=== PATIENT | female | born 2005 | race Caucasian/White ===

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

== ENCOUNTER 2023-08-08 10:37 | Outpatient (CLI) | payer OTHER, SELFPAY ==
[2023-08-08 10:52] LABS: Basophils Absolute Auto 0.03 K/mm3 (0.00-0.10); Basophils Percent Auto 0.3 % (0.0-1.0); Eosinophils Absolute Auto 0.11 K/mm3 (0.02-0.50); Hemoglobin 13.3 g/dL (12.0-15.0); Immature Granulocyte Absolute 0.04 K/mm3 (0.00-0.00); Immature Granulocyte Percent A 0.4 % (0.0-0.0); Lymphocytes Absolute Auto 1.81 K/mm3 (1.10-4.50); Mean Corpuscular HGB Conc 33.3 g/dL (32.0-36.0); Mean Corpuscular Hemoglobin 30.1 pg (27.0-31.0); Mean Corpuscular Volume 90.5 fL (78.0-102.0); Mean Platelet Volume 10.4 fl (9.2-11.8); Monocytes Absolute Auto 0.82 K/mm3 (0.10-0.90); Monocytes Percent Auto 7.3 % (2.0-11.0); Neutrophils Absolute Auto 8.5 K/mm3 (1.7-7.2); Platelet Count Result 265 K/mm3 (150-420); Red Blood Count 4.42 M/mm3 (4.20-5.40); Red Cell Distribution Width 13.2 % (11.6-14.4); White Blood Count 11.3 K/mm3 (4.8-10.8)
[2023-08-08 11:42] LABS: Alanine Aminotransferase 12 U/L (14-59); Albumin Level 3.9 g/dL (3.4-5.0); Alkaline Phosphatase 110 U/L (50-130); Anion Gap 8 mmol/L (8-16); Aspartate Amino Transferase 14 U/L (15-37); Bilirubin,Total 0.8 mg/dL (0.00-1.00); Blood Urea Nitrogen 6 mg/dL (7-18); Calcium 9.2 mg/dL (8.5-10.1); Carbon Dioxide 28 mmol/L (21-32); Chloride 105 mmol/L (98-108); Estimated Glomerular Filt Rate > 60; Free T4 Free Thyroxine 1.05 ng/dL (0.76-1.46); Glucose 102 mg/dL (70-99); Osmolality Calculated 289 mOsm/kg (285-295); Potassium 4.3 mmol/L (3.5-5.1); Sodium 141 mmol/L (136-145); Thyroid Stimulating Hormone 1.33 uIU/mL (0.52-4.13); Total Protein 7.5 g/dL (6.4-8.2)
== END 2023-08-08 10:38 | disposition home or self-care (01) ==
LOC: CHSLAB 10:38
PROVIDERS: PCP Internal Medicine; Visit Provider Nurse Practitioner Family
DX: L70.0 Acne vulgaris (principal); Z30.41 Encounter for surveillance of contraceptive pills; R03.0 Elevated blood-pressure reading, without diagnosis of hypertension
CPT/HCPCS: 36415; 80053; 84439; 84443; 85025

== ENCOUNTER 2023-09-11 12:26 | Outpatient (CLI) | payer OTHER, SELFPAY ==
[2023-09-11 12:48] LABS: Basophils Absolute Auto 0.06 K/mm3 (0.00-0.10); Basophils Percent Auto 0.5 % (0.0-1.0); Eosinophils Absolute Auto 0.07 K/mm3 (0.02-0.50); Eosinophils Percent Auto 0.6 % (1.0-6.0); Hematocrit 39.8 % (35.0-49.0); Hemoglobin 13.3 g/dL (12.0-15.0); Immature Granulocyte Absolute 0.03 K/mm3 (0.00-0.00); Immature Granulocyte Percent A 0.3 % (0.0-0.0); Lymphocytes Absolute Auto 2.03 K/mm3 (1.10-4.50); Lymphocytes Percent Auto 18.6 % (18.0-42.0); Mean Corpuscular HGB Conc 33.4 g/dL (32.0-36.0); Mean Corpuscular Hemoglobin 29.8 pg (27.0-31.0); Mean Corpuscular Volume 89.2 fL (78.0-102.0); Mean Platelet Volume 10.3 fl (9.2-11.8); Monocytes Absolute Auto 0.59 K/mm3 (0.10-0.90); Monocytes Percent Auto 5.4 % (2.0-11.0); Neutrophils Absolute Auto 8.2 K/mm3 (1.7-7.2); Neutrophils Percent Auto 74.6 % (50.0-70.0); Platelet Count Result 300 K/mm3 (150-420); Red Blood Count 4.46 M/mm3 (4.20-5.40); Red Cell Distribution Width 12.8 % (11.6-14.4); White Blood Count 10.9 K/mm3 (4.8-10.8)
[2023-09-11 13:31] LABS: Alanine Aminotransferase 11 U/L (14-59); Albumin Level 3.7 g/dL (3.4-5.0); Alkaline Phosphatase 95 U/L (46-116); Anion Gap 11 mmol/L (8-16); Aspartate Amino Transferase 12 U/L (15-37); Bilirubin,Total 0.8 mg/dL (0.00-1.00); Blood Urea Nitrogen 8 mg/dL (7-18); Calcium 9.5 mg/dL (8.5-10.1); Carbon Dioxide 28 mmol/L (21-32); Chloride 102 mmol/L (98-108); Estimated Glomerular Filt Rate > 60; Glucose 128 mg/dL (70-99); Osmolality Calculated 292 mOsm/kg (285-295); Potassium 3.8 mmol/L (3.5-5.1); Sodium 141 mmol/L (136-145); Total Protein 7.2 g/dL (6.4-8.2)
== END 2023-09-11 12:27 | disposition home or self-care (01) ==
LOC: CHSLAB 12:28
PROVIDERS: PCP Internal Medicine; Visit Provider Nurse Practitioner Family
DX: Z51.81 Encounter for therapeutic drug level monitoring (principal)
CPT/HCPCS: 36415; 80053; 85025

== ENCOUNTER 2023-10-29 14:16 | Outpatient (CLI) | payer OTHER, SELFPAY ==
[2023-10-29 14:46] LABS: Influenza Control Valid (Valid); SARS-CoV-2 Ag Negative (Negative)
== END 2023-10-29 14:17 | disposition home or self-care (01) ==
LOC: CHSLAB 14:19
PROVIDERS: PCP Internal Medicine; Visit Provider Nurse Practitioner Family
DX: R11.2 Nausea with vomiting, unspecified (principal)
CPT/HCPCS: 87426; 87804; C9803

== ENCOUNTER 2023-11-01 14:48 | Emergency (ER) | payer OTHER, SELFPAY ==
[2023-11-01 14:52] VITALS: BP 120/94; PULSE 97; RESP 12; TEMP 36.8; O2SAT 99
[2023-11-01 15:05] VITALS: O2SAT 100
--- NOTE | 2023-11-01 15:08 | ED.URI ---
HPI - URI/Sore Throat General Chief Complaint: Upper Respiratory Infection Stated Complaint: body aches Time Seen by Provider: 11/01/23 14:50 Source: patient Mode of arrival: ambulatory Limitations: no limitations History of Present Illness HPI Narrative: Patient is a 18 year old female with no significant PMH that presents today with URI symptoms. Patient has had body aches, cough, congestion, rhinorrhea for the last for 4 days. She is up-to-date with all her vaccinations. She says she is worried having meningitis because someone told her that she could. She did take a COVID influenza swab at her primary care's office that was negative. She still continues to have symptoms. She denies any fevers or sick contacts. MD elicited complaint: cough, rhinorrhea and nasal congestion Onset (ago): day(s) Consistency: constant Severity: mild Description of mucous: clear Able to tolerate fluids by mouth: Yes Exacerbating factors: nothing Relieving factors: nothing Associated symptoms: denies other symptoms Treatments prior to arrival: none Related Data Home Medications Medication Instructions Recorded Confirmed norgestimate 0.18 mg/0.215 mg/0.25 1 tablet PO DAILY 11/01/23 11/01/23 mg-ethinyl estradiol 25 mcg tablet (Rsp-Dw-Bnvrmisg) ondansetron HCl 8 mg tablet 8 mg PO TID 11/01/23 11/01/23 spironolactone 50 mg tablet 50 mg PO DAILY 11/01/23 11/01/23 Allergies Allergy/AdvReac Type Severity Reaction Status Date / Time No Known Allergies Allergy Unverified 11/01/23 14:49 Review of Systems Review of Systems: All systems reviewed & are unremarkable except as noted in HPI and below Constitutional: Constitutional: Reports fatigue Eyes: Eyes: Reports no additional eye complaints ENT: Reports as per HPI and Reports nasal congestion Cardiovascular: Cardiovascular: Reports no additional cardiovascular complaints Respiratory: Respiratory: Reports cough Gastrointestinal: Gastrointestinal: Reports no additional gastrointestinal complaints Musculoskeletal: Musculoskeletal: Reports no additional musculoskeletal complaints Integumentary/Breasts: Skin/Breast: Reports system reviewed and no additional complaints, except as docu Neurologic: Reports system reviewed and no additional complaints, except as documented Psychiatric: Psychiatric: Reports no additional psychiatric complaints Endocrine: Endocrine: Reports no additional endocrine complaints Exam Const: General: no acute distress Nutritional Appearance: well nourished Orientation/consciousness: patient oriented x3 HENMT: Head: normal to inspection Ears: external ears normal Face/Nose/Sinus: Nasal discharge present Face and sinus: normal facial exam Mouth: Yes Normal oral and palatal mucosa present Eyes: Conjunctivae: conjunctivae normal Pupils: Equal, round and reactive pupils present EOM: EOMs intact bilaterally Neck: Neck: normal visual inspection Chest: Chest palpation & inspection: normal inspection of the chest Resp: Effort & Inspection: normal respiratory effort Auscultation: clear to auscultation bilaterally Cardio: Rate: regular rate Rhythm: regular rhythm GI: GI Palp: Yes Soft to palpation Auscultation: normal bowel sounds Back/Spine/Pelvis: Back: no CVA tenderness Skin: General skin exam: normal color Rashes: no rashes Wounds: no wounds Neuro: General: patient oriented x3 Cranial nerves: Yes Nystagmus not present Speech: normal speech Extrem: General: normal to inspection Psych: Mental Status: mental status grossly normal Affect: normal affect Course Reevaluation(s) Reevaluation #1: RSV/COVID/INFLUENZA all NEG Date: 11/01/23 Time: 15:57 Vital Signs Vital signs: Vital Signs Temperature 98.2 F 11/01/23 14:52 Pulse Rate 97 11/01/23 14:52 Respiratory Rate 12 11/01/23 14:52 Blood Pressure 120/94 H 11/01/23 14:52 Pulse Oximetry 99 11/01/23 14:52 Oxygen Delivery Room Air 11/01/23 14:52 Temperat
[2023-11-01 15:43] LABS: SARS-CoV-2 RNA PCR Negative (Negative)
[2023-11-01 15:44] LABS: Influenza A QL RT-PCR Negative (Negative); Influenza B QL RT-PCR Negative (Negative); RSV RNA, RT-PCR Negative (Negative)
[2023-11-01 16:09] VITALS: BP 120/94; PULSE 97; RESP 12; TEMP 36.8; O2SAT 100
--- NOTE | 2023-11-01 16:40 | PC.NURSE ---
[facility] was closed, patient called to have prescription sent to [facility] in [place]. RN spoke with Moreno Urban, and left message at [facility] to cancel prescriptions.
== END 2023-11-01 16:09 | disposition home or self-care (01) ==
PROVIDERS: Emergency Provider Family Medicine; PCP Internal Medicine
DX: J06.9 Acute upper respiratory infection, unspecified (principal); J01.90 Acute sinusitis, unspecified; B96.89 Other specified bacterial agents as the cause of diseases classified elsewhere; Z79.899 Other long term (current) drug therapy; Z20.822 Contact with and (suspected) exposure to COVID-19
CPT/HCPCS: 87637; 99283

== ENCOUNTER 2023-11-01 19:52 | Emergency (ER) | payer OTHER, SELFPAY ==
[2023-11-01] VITALS (18 sets, daily range): BP systolic 114–142; BP diastolic 73–101; PULSE 73–126; RESP 14–24; TEMP 37; O2SAT 96–100
--- NOTE | ~2023-11-01 | XR_ITS ---
EXAMINATION: XR chest 2V Exam Date/Time: 11/01/2023 21:02 OIL GAUGER HISTORY: cough, short of breath x 1 week Comparison: 10/29/2009. RESULT: Lines, tubes, and devices: None. Lungs and pleura: Clear. Low lung volumes in the lateral view. Cardiomediastinal silhouette: Unremarkable. Other: No acute osseous or upper abdominal finding. IMPRESSION: No acute cardiopulmonary process. Reviewed, dictated and finalized at location K. GAUGER
--- NOTE | 2023-11-01 20:10 | ECG_ITS ---
Measurements Intervals [place] Rate: 112 P: 36 MS: 126 QRS: 18 QRSD: 81 T: -18 QT: 307 QTc: 419 Interpretive Statements SINUS TACHYCARDIA NONSPECIFIC T-WAVE ABNORMALITY ABNORMAL ECG NO PREVIOUS ECG AVAILABLE FOR COMPARISON Electronically Signed On 11-02-2023 12:44:16 [employer] by Griffin Trinh M.D.
[2023-11-01 20:53] LABS: Strep Group A RT-PCR NOT DETECTED (Negative)
--- NOTE | 2023-11-01 20:57 | ED.URI ---
HPI - URI/Sore Throat General Chief Complaint: Upper Respiratory Infection Stated Complaint: sore throat, URI Time Seen by Provider: 11/01/23 20:15 Source: patient Mode of arrival: ambulatory Limitations: no limitations History of Present Illness HPI Narrative: Patient is a 18 y/o female who presents to the ED with multiple complaints. Patient reports she has been sick since last Thursday (1 week ago) with mild cough, congestion, myalgias, headaches, back and shoulder aches, chest tightness, sore throat, intermittent nausea (improved with Zofran rx'd last week by her primary). She reports having a fever a few nights ago but is unsure if her thermometer was accurate. Denies SOB, vomiting, abdominal pain. Patient was seen at [facility] today and tested negative for covid, influenza, RSV. She was Rx'd doxycycline and medrol dose terrance but has not picked these up from the pharmacy yet. Related Data Home Medications Medication Instructions Recorded Confirmed norgestimate 0.18 mg/0.215 mg/0.25 1 tablet PO DAILY 11/01/23 11/01/23 mg-ethinyl estradiol 25 mcg tablet (Vly-Ox-Sucxcnoz) ondansetron HCl 8 mg tablet 8 mg PO TID 11/01/23 11/01/23 spironolactone 50 mg tablet 50 mg PO DAILY 11/01/23 11/01/23 Allergies Allergy/AdvReac Type Severity Reaction Status Date / Time No Known Allergies Allergy Unverified 11/01/23 14:49 Review of Systems Review of Systems: CONSTITUTIONAL: Denies fever, chills, or sweats. ENT: See HPI. CARDIOVASCULAR: reports chest tightness. RESPIRATORY: Reports cough. Denies dyspnea. GASTROINTESTINAL: See HPI. MUSCULOSKELETAL: See HPI. NEUROLOGIC: See HPI. All systems reviewed & are unremarkable except as noted in HPI and below Exam Narrative: GENERAL: Well appearing, obese with BMI of 37.5, non-toxic, in no acute distress. HEAD: Normocephalic, atraumatic. NECK: Supple. No adenopathy, no masses. No meningeal signs. RESPIRATORY: Airway patent, respirations nonlabored. Clear to auscultation bilaterally, no rales, rhonchi, wheezing. No focal lung sounds. CARDIOVASCULAR: Borderline tachycardic with regular rhythm without murmurs, rubs, or gallops. Radial pulses 2+ and equal bilaterally. MUSCULOSKELETAL: Moves all extremities. No gross deformities. SKIN: Warm, dry, normal color. No rashes. NEURO: A&O X3. Speech clear. Cranial nerves II-XII grossly intact. Steady gait. No ataxic movements. PSYCHIATRIC: Appropriate mood and affect. Normal interaction. Course Vital Signs Vital signs: Vital Signs Temperature 98.6 F 11/01/23 20:06 Pulse Rate 111 H 11/01/23 20:06 Respiratory Rate 14 11/01/23 20:06 Blood Pressure 142/85 H 11/01/23 20:06 Pulse Oximetry 98 11/01/23 20:06 Temperature 98.6 F 11/01/23 20:06 Pulse Rate 86 11/01/23 23:03 Respiratory Rate 15 11/01/23 23:03 Blood Pressure 119/78 11/01/23 22:31 Pulse Oximetry 100 11/01/23 23:03 Oxygen Delivery Room Air 11/01/23 20:27 MDM - URI/Sore Throat MDM Narrative Medical decision making narrative: Patient presented to ED with multiple complaints, URI symptoms, myalgias. Seen at outside hospital today and tested negative for COVID, influenza, RSV. Strep negative here. Chest x-ray here clear. EKG without concerning ST changes. Basic laboratory studies without leukocytosis, mild elevation of bilirubin to 1.7, mild transaminitis noted. Likely reactive related to viral infection. Patient denying any significant abdominal pain. Patient complaining most of a persistent headache at this time. Will treat like migraine with migraine cocktail for symptom relief. On re-evaluation, patient is feeling better with supportive therapy. Symptoms improved. [place] testing did result positive. This does explain patient's symptoms. Discussed management of mononucleosis, supportive therapies, advised close follow-up with primary care doctor for further evaluation. Discussed avoiding contact sports, strict retu
[2023-11-01] MEDS: ACETAMINOPHEN 500 MG TABLET 1000 MG PO (21:43)
[2023-11-01] MEDS: SODIUM CHLORIDE 0.9% IV 1,000 ML 999 ML IV CONT (21:44)
[2023-11-01] MEDS: diphenhydrAMINE HCl INJ 50 MG/ML VIAL 25 MG IV PUSH (21:46)
[2023-11-01 21:47] LABS: Basophils Absolute Auto 0.1 K/mm3 (0.0-0.1); Basophils Percent Auto 1.3 % (0.2-1.2); Eosinophils Percent Auto 0.3 % (0-4.4); Hematocrit 40.4 % (37.0-47.0); Hemoglobin 13.5 g/dL (12.0-15.0); Immature Granulocyte Absolute 0.04 K/mm3 (0.00-0.031); Immature Granulocyte Percent A 0.6 % (0-0.5); Immature Platelet Fraction Pct 8.1 % (0.9-11.2); Lymphocytes Absolute Auto 3.39 K/mm3 (0.9-3.2); Lymphocytes Percent Auto 53.8 % (18.3-44.2); Mean Corpuscular HGB Conc 33.4 g/dl (32-36); Mean Corpuscular Hemoglobin 29.5 pg (26-34); Mean Corpuscular Volume 88.2 fl (80-100); Mean Platelet Volume 10.8 fl (7.4-10.4); Monocytes Absolute Auto 0.7 K/mm3 (0.1-0.6); Neutrophils Absolute Auto 2.1 K/mm3 (1.3-6.7); Platelet Count Result 123 k/mm3 (150-375); Red Blood Count 4.58 M/mm3 (4.2-5.4); Red Cell Distribution Width 13.1 % (11.5-14.5); White Blood Count 6.3 K/mm3 (4.5-10.0)
[2023-11-01] MEDS: METOCLOPRAMIDE HCL INJ 10 MG/2 ML VIAL IV PUSH (21:47)
[2023-11-01 21:55] LABS: Alanine Aminotransferase 44 U/L (6-35); Albumin Level 4.4 g/dL (3.5-5.1); Alkaline Phosphatase 233 U/L (38-126); Anion Gap 6 mmol/L (8-16); Aspartate Amino Transferase 105 U/L (14-36); Bilirubin,Total 1.7 mg/dL (0.2-1.3); Blood Urea Nitrogen 7 mg/dL (7-17); Calcium 9.2 mg/dL (8.4-10.2); Carbon Dioxide 29 mmol/L (22-30); Chloride 102 mmol/L (98-107); Estimated CRCL calculation 126 ml/min; Estimated Glomerular Filt Rate > 60; Glucose 104 mg/dL (65-110); Potassium 4.1 mmol/L (3.4-5.0); Sodium 137 mmol/L (137-145)
[2023-11-01 22:45] LABS: Monoscreen Positive (Negative); Negative Monotest Control Negative (Negative); Positive Monotest Control Positive (Positive)
== END 2023-11-01 23:04 | disposition home or self-care (01) ==
PROVIDERS: Emergency Provider Physician Assistant; PCP Internal Medicine
DX: B27.90 Infectious mononucleosis, unspecified without complication (principal); B34.9 Viral infection, unspecified; Z79.899 Other long term (current) drug therapy
CPT/HCPCS: 36415; 71046; 80053; 85025; 85055; 86308; 87651; 93005; 96361; 96374; 96375; 99284; A9270; J1100; J1200; J2765; J7030

== ENCOUNTER 2023-12-19 08:08 | Outpatient (CLI) | payer OTHER, SELFPAY ==
--- NOTE | ~2023-12-19 | MR_ITS ---
EXAMINATION: MR brain/brain stem wo/w con DATE: 12/19/2023 09:13 INDICATION: HEADACHES X 1 MONTH NKI TECHNIQUE: Magnetic resonance imaging (MRI) of the brain and brainstem was performed without and with 16 mL MultiHance intravenous contrast. Sequences included sagittal and axial T1-weighted SE, axial d iffusion-weighted, ADC, T1 and T2 FSE, FLAIR, and 3-D T1 GRE; post contrast sequences included axial T1 FSE and coronal T1. COMPARISON: None. FINDINGS: No abnormal restricted diffusion to suggest acute ischemic infarct. No MRI evidence of hemorrhage or extra-axial collection. No suspicious foci of susceptibility to suggest prior intraparenchymal hemorr mahendra. Normal white matter signal. No evidence of advanced or lobar predominant parenchymal volume los s. No abnormal enhancement. The basilar cisterns are patent. Flow voids are preserved. Small retentio n cysts/polyps in the bilateral maxillary sinuses, otherwise the paranasal sinuses sinuses and mastoi d air cells are within normal limits. Globes and orbital contents are within normal limits. IMPRESSION: Normal MRI brain findings Reviewed, dictated and finalized at location K. T MARKER IMPRESSION: Normal MRI brain findings
== END 2023-12-19 08:09 | disposition home or self-care (01) ==
PROVIDERS: PCP Internal Medicine; Visit Provider Internal Medicine
DX: R51.9 Headache, unspecified (principal)
CPT/HCPCS: 70553; A9577

== ENCOUNTER 2024-01-29 14:34 | Outpatient (CLI) | payer OTHER, SELFPAY ==
[2024-01-29 15:09] LABS: Anion Gap 10 mmol/L (8-16); Blood Urea Nitrogen 7 mg/dL (7-18); Calcium 9.3 mg/dL (8.5-10.1); Carbon Dioxide 29 mmol/L (21-32); Chloride 104 mmol/L (98-108); Estimated Glomerular Filt Rate > 60; Glucose 88 mg/dL (70-99); Osmolality Calculated 293 mOsm/kg (285-295); Sodium 143 mmol/L (136-145)
== END 2024-01-29 14:35 | disposition home or self-care (01) ==
LOC: CHSLAB 14:36
PROVIDERS: PCP Internal Medicine; Visit Provider Nurse Practitioner Family
DX: Z51.81 Encounter for therapeutic drug level monitoring (principal); R94.4 Abnormal results of kidney function studies
CPT/HCPCS: 36415; 80048

== ENCOUNTER 2025-01-29 21:29 | Emergency (ER) | payer OTHER, SELFPAY ==
[2025-01-29 21:34] VITALS: BP 146/95; PULSE 93; RESP 16; TEMP 36.6; O2SAT 99
--- NOTE | 2025-01-29 21:34 | ED_ITS ---
HPI - General Adult General Chief complaint: Urogenital-Female Stated complaint: urinary complaints Time Seen by Provider: 01/29/25 21:33 History of Present Illness HPI narrative: Jennie is a previously healthy 19F that presented to the ED with worsening dysuria, low back pain and urinary frequency not helped by Azo. It started 6 hours ago. No flank pain, hematuria, fevers or systemic symptoms. Related Data Home Medications ?Medication ?Instructions ?Recorded ?Confirmed ?Last Taken ?Type norgestimate 0.18 mg/0.215 mg/0.25 1 tablet PO DAILY 11/01/23 11/01/23 Unknown History mg-ethinyl estradiol 25 mcg tablet (Aoo-Ul-Hsogyprw) ondansetron HCl 8 mg tablet 8 mg PO TID 11/01/23 11/01/23 Unknown History spironolactone 50 mg tablet 50 mg PO DAILY 11/01/23 11/01/23 Unknown History Allergies Allergy/AdvReac Type Severity Reaction Status Date / Time cefdinir Allergy Nausea Verified 01/29/25 21:40 Review of Systems Review of Systems: All systems reviewed & are unremarkable except as noted in HPI and below Exam Const: General: cooperative, healthy appearing, comfortable, no acute distress, well developed, alert, awake and Physically active Orientation/consciousness: oriented to person, oriented to place and oriented to time HENMT: Head: normal to inspection, normocephalic and atraumatic Ears: hearing grossly normal bilaterally and external ears normal Face/Nose/Sinus: Normal external nose present Eyes: General: appearance normal, both eyes and all related structures Periorbital: periorbital findings normal Sclera: sclerae normal Pupils: Equal, round and reactive pupils present Neck: Neck: normal visual inspection Chest: Chest palpation & inspection: normal inspection of the chest Resp: Effort & Inspection: normal respiratory effort, able to speak in co mplete sentences and no respiratory distress Auscultation: clear to auscultation bilaterally Cardio: Jugular venous distension: no JVD Rate: regular rate Rhythm: regular rhythm GI: Inspection: normal to inspection GI Palp: Yes Soft to palpation Auscultation: normal bowel sounds Skin: General skin exam: normal color and no rashes or lesions noted Neuro: General: oriented to person, oriented to place and oriented to time Cranial nerves: Yes Equal, round and reactive pupils present Extrem: General: normal to inspection Course Course Emergency Course: ordered UA. UA c/w UTI. Ordered Bactrim. Vital Signs Vital signs: Vital Signs Temperature 97.9 F 01/29/25 21:34 Pulse Rate 93 01/29/25 21:34 Respiratory Rate 16 01/29/25 21:34 Blood Pressure 146/95 H 01/29/25 21:34 Pulse Oximetry 99 01/29/25 21:34 Oxygen Delivery Room Air 01/29/25 21:34 Temperature 97.9 F 01/29/25 21:34 Pulse Rate 93 01/29/25 21:34 Respiratory Rate 16 01/29/25 21:34 Blood Pressure 146/95 H 01/29/25 21:34 Pulse Oximetry 99 01/29/25 21:34 Oxygen Delivery Room Air 01/29/25 21:34 Medical Decision Making Vital Signs Vital Signs: Vital Signs Temperature 97.9 F 01/29/25 21:34 Pulse Rate 93 01/29/25 21:34 Respiratory Rate 16 01/29/25 21:34 Blood Pressure 146/95 H 01/29/25 21:34 Pulse Oximetry 99 01/29/25 21:34 Oxygen Delivery Room Air 01/29/25 21:34 Temperature 97.9 F 01/29/25 21:34 Pulse Rate 93 01/29/25 21:34 Respiratory Rate 16 01/29/25 21:34 Blood Pressure 146/95 H 01/29/25 21:34 Pulse Oximetry 99 01/29/25 21:34 Oxygen Delivery Room Air 01/29/25 21:34 Lab Data Labs: Lab Results 01/29/25 Range/Units 21:34 Urine Color Dark orange (Yellow) Urine Appearance Cloudy A (Clear) Urine pH 6.5 (5.0-8.0) Ur Specific [place] 1.020 (1.010-1.020) Urine Protein 3+ H (Negative) Urine Glucose (UA) 1+ H (Negative) Urine Ketones 1+ H (Negative) Ur Blood (Man) 1+ H (Negative) Urine Nitrate Positive H (Negative) Urine Bilirubin Negative (Negative) Urine Urobilinogen >=8.0 (0.2-1.0) mg/dL Leukocyte Esterase Rfl 2+ H (Negative) PHAM/UL Urine RBC 6-10 H (0-2) /hpf Urine WBC >75 H (0-3) /hpf Urine WBC Clumps Present H (None) /hpf Urine Bacteria 2+ H (None) /hpf Discharge Plan Discharge Clinical Impression: UTI (urinary tract infection) Patient Disposition: Home, Self-Care Condition: Stable Instructions: Urinary Tract Infection in Women (ED) Patient Language: Algerian Prescriptions: New sulfamethoxazole-trimethoprim [Bactrim DS] 800-160 mg tablet 1 tablet PO Q12H Qty: 10 0RF No Action ondansetron HCl 8 mg tablet 8 mg PO TID spironolactone 50 mg tablet 50 mg PO DAILY norgestimate-ethinyl estradiol [Zes-Nd-Ecovnqbp] 0.18/0.215/0.25 mg-25 mcg tablet 1 tablet PO DAILY doxycycline hyclate 100 mg tablet 100 mg PO BID Qty: 20 0RF methylprednisolone [Medrol (Ruddy)] 4 mg tablets,dose pack See Rx Instructions .ROUTE .COMPLEX Qty: 21 0RF Rx Instructions: orally per package directions Follow-up/Referrals: Tyler Lorenz MD [Primary Care Provider] -
--- NOTE | 2025-01-29 22:22 | PC.NURSE ---
patient resting on stretcher without distress, visitor at bedside. update provided and patient denies current needs.
--- NOTE | 2025-01-29 22:55 | PC.NURSE ---
ERP at bedside for update.
[2025-01-29 22:56] LABS: Bilirubin Urine Negative (Negative); Blood Urine 1+ (Negative); Glucose Urine UA 1+ (Negative); Ketones Urine 1+ (Negative); Leukocyte Esterase Ur 2+ LEU/UL (Negative); Nitrate Urine Positive (Negative); Protein Urine 3+ (Negative); Urobilinogen Urine >=8.0 mg/dL (0.2-1.0); pH Urine 6.5 (5.0-8.0)
[2025-01-29 23:13] LABS: Add Urine Microscopic? YES; Appearance Urine Cloudy (Clear); Bacteria Urine 2+ /hpf; WBC Clumps Urine Present /hpf; WBC Urine >75 /hpf (0-3)
[2025-01-29 23:15] LABS: Color Urine Dark Orange (Yellow)
[2025-01-29] MEDS: SULFAMETHOXAZOLE/TRIMETHOPRIM 800/160 MG DS TABLET 2 TAB PO (23:20)
[2025-01-29 23:25] VITALS: BP 141/82; PULSE 85; RESP 16; TEMP 36.7; O2SAT 99
== END 2025-01-29 23:29 | disposition home or self-care (01) ==
PROVIDERS: Emergency Provider Family Medicine; PCP Internal Medicine
DX: N39.0 Urinary tract infection, site not specified (principal)
CPT/HCPCS: 81001; 87086; 99283; A9270